=== PATIENT | female | born 1970 | race Caucasian/White ===

== ENCOUNTER 2016-07-10 10:06 | Day surgery (SDC) | payer OTHER ==
[2016-07-10] MEDS ORDERED: PEPCID ONE (10:35)
[2016-07-10] MEDS ORDERED: KEFZOL 2 GM/D5W 50 ML ONE (10:36)
[2016-07-10] MEDS ORDERED: REGLAN ONE (10:36)
[2016-07-10] MEDS ORDERED: LR 1,000 ML ONE (10:36)
[2016-07-10] MEDS ORDERED: MARCAINE 0.5% PF ONE (11:15)
[2016-07-10] MEDS ORDERED: XYLOCAINE 1% ONE (11:16)
[2016-07-10] MEDS ORDERED: DILAUDID ONE (12:52)
[2016-07-10] MEDS ORDERED: LR 500 ML ONE (12:54)
--- NOTE | 2016-07-10 13:16 | OPERATIVE NOTE ---
PROCEDURE DATE: 07/10/2016 PREOPERATIVE DIAGNOSIS: Right hallux rigidus. POSTOPERATIVE DIAGNOSIS: Right hallux rigidus. PROCEDURE: Right cheilectomy with implant. SURGEON: Pablito Trevino MD [employer] TUBE REPAIRER: Trevin Roger RN ANESTHESIA: General with LMA. TOURNIQUET TIME: Less than 30 minutes. ESTIMATED BLOOD LOSS: About 10 mL. IMPLANT: Cartiva 1st metatarsal implant. DISPOSITION: To PACU, hemodynamically stable. INDICATION FOR PROCEDURE: Ms Vicenta Jarquin 46-year-old female who I have seen in clinic for evaluation of this right hallux rigidus. We discussed options. She has already undergone a lot of nonoperative treatment, and wants surgical intervention. So we went over doing a cheilectomy, fusion or a cheilectomy with implant. After discussing everything, she went with cheilectomy with implant. I went over the procedure, risks, benefits, potential complications, and she expressed understanding and wished to proceed. DESCRIPTION OF PROCEDURE: Ms Jarquin was identified in the preoperative holding area. The right foot was marked as the correct surgical site. She was then wheeled to the operating room, placed supine on the operating table. All bony prominences were well padded. She was induced under general anesthesia. LMA was placed. Tourniquet placed to the right thigh. Right lower extremity was then prepped with chlorhexidine gluconate scrub and then ChloraPrep, and draped in normal sterile fashion. Surgical pause was performed. We identified the correct patient, the correct side, and the correct procedure. Preop antibiotics were given. Esmarch was used to exsanguinate the right lower extremity and tourniquet was inflated to 300 mmHg. Total tourniquet time was less than 30. I made a longitudinal incision over the 1st MTP joint. Dissection was carried down just medial to the EHL, which was retracted laterally. I then made my capsulotomy dorsally so as to avoid the dorsomedial cutaneous branch. I came right down on to the joint line. I elevated the capsule both medially and laterally off the metatarsal head and the proximal phalanx base. The joint was very arthritic especially dorsally. There is just a little bit of good cartilage plantarly and a little bit plantar medial, but most of it was denuded of cartilage. A lot of bone spurring around that whole area and took my rongeur, performed my condylectomy where I moved all those bone spurs off the metatarsal head and off the proximal phalanx base. After I cleaned up the joint very well, I then irrigated everything copiously with normal saline and then got my position for my Cartiva implant. I drilled my guidewire in and then I took the Cartiva drill and drilled my hole in the metatarsal head for the implant. I cleaned it out really well. We then irrigated the joint again copiously with normal saline. I got any bone shards out. I then prepared the implant on the back table and then pushed into the hole without a drill in the metatarsal head and everything fit actually really well. It was about a mm half to 2 mm proud just enough to buffer that proximal phalanx away from the arthritic area. I did a little bit more debridement of the bone dorsally, but everything looked good at that point. I then closed the capsule with 0 Vicryl, the subcutaneous with 2-0 Vicryl, and the skin with a running Monocryl. Adaptic, 4x4s, ABD, soft roll, and Nik was then placed. Patient will be placed in a boot when she gets home because she has that her house, she forgot to bring it, and she will be weight bear as tolerated right lower extremity. I will see her in a week in the clinic.
[2016-07-10] MEDS ORDERED: PERCOCET-5 ONE (13:19)
[2016-07-10 14:23] VITALS: BP 140/90
[2016-07-10] MEDS ORDERED: XYLOCAINE-MPF 2% ONE (15:11)
[2016-07-10] MEDS ORDERED: DIPRIVAN 1% ONE (16:54)
[2016-07-10] MEDS ORDERED: FENTANYL ONE (16:54)
== END 2016-07-10 14:10 | disposition home or self-care (01) ==
LOC: PAT 10:06
PROVIDERS: ATTEND Orthopaedic Surgery
DX: M20.21 Hallux rigidus, right foot (principal)
CPT/HCPCS: 76000; J0690; J1170; J3010; J7120; S0020